=== PATIENT | male | born 1980 ===

== ENCOUNTER 2017-02-05 19:04 | Emergency (ER) | payer OTHER ==
[2017-02-05 19:24] VITALS: BP 119/96; PULSE 82; RESP 16; TEMP 98; O2SAT 100
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
== END 2017-02-05 20:14 | disposition home or self-care (01) ==
LOC: H.ER 19:04
DX: Z57.8 Occupational exposure to other risk factors (principal); Z79.4 Long term (current) use of insulin

== ENCOUNTER 2017-04-24 11:21 | Emergency (ER) | payer OTHER ==
--- NOTE | 2017-04-24 11:37 | ED PDOC ---
HPI: Back Time Seen by Provider: 04/24/17 11:30 Chief Complaint (Nursing): Back Pain Chief Complaint (Provider): back pain History Per: Patient History/Exam Limitations: no limitations Additional Complaint(s): 36yo male come to the ED complaining of intermittent bilateral lower back pain for 1 month, worse since episode began yesterday. No upper back pain. Made worse by sitting or laying down. Past Medical History Reviewed: Historical Data, Nursing Documentation, Vital Signs - Medical History PMH: Diabetes, Pancreatitis Denies: HIV, Chronic Kidney Disease Other PMH: leg length discrepancy - Surgical History Other surgeries: right foot toe amputation - Family History Family History: States: Unknown Family Hx - Home Medications Home Medications: Ambulatory Orders Medication Instructions Recorded Gemfibrozil [Lopid] 600 mg PO BID #0 tab 05/14/15 Insulin Detemir [Levemir] 36 units SC HS #0 vial 05/14/15 Insulin Lispro [humALOG] 14 units SC AC #0 ml 05/14/15 Potassium Chloride [K-Dur 20] 20 meq PO DAILY #5 tab 05/14/15 Ibuprofen [Motrin] 1 tab PO Q8 PRN #21 tab 12/11/16 - Allergies Allergies/Adverse Reactions: Allergies Allergy/AdvReac Type Severity Reaction Status Date / Time Penicillins Allergy RASH Verified 12/11/16 11:34 shellfish derived Allergy RASH Verified 12/11/16 11:34 Review of Systems ROS Statement: Except As Marked, All Systems Reviewed And Found Negative Musculoskeletal: Positive for: Back Pain Physical Exam - Reviewed Nursing Documentation Reviewed: Yes Vital Signs Reviewed: Yes - Physical Exam Appears: Positive for: Well, Non-toxic, No Acute Distress Head Exam: Positive for: ATRAUMATIC, NORMAL INSPECTION, NORMOCEPHALIC Skin: Positive for: Warm, Dry Eye Exam: Positive for: EOMI, PERRL Respiratory: Negative for: Respiratory Distress Back: Positive for: Other (left paraspinal tenderness around L4 area. no CVA tenderness.) Extremity: Positive for: Normal ROM Neurologic/Psych: Positive for: Alert, Oriented Medical Decision Making Medical Decision Makin XR Lumbar Spine, Flexeril, Toradol Additional Comments - Additional Comments Additional Comments: Scribe Attestation: Documented by Keagan Kinney acting as a scribe for Ayesha Collins MD. Provider Attestation: All medical record entries made by the Scribe were at my direction and personally dictated by me. I have reviewed the chart and agree that the record accurately reflects my personal performance of the history, physical exam, medical decision making, and the department course for this patient. I have also personally directed, reviewed, and agree with the discharge instructions and disposition.
[2017-04-24 11:40] VITALS: BMI 38.0
--- NOTE | 2017-04-24 13:41 | RAD ---
PROCEDURE: Radiographs of the Lumbar Spine. HISTORY: L paraspinal pain COMPARISON: No prior. FINDINGS: BONES: No acute fractures nor retropulsed fragments. Vertebral bodies exhibit relatively normal stature. There is mild dextroscoliosis and or side bending to the right side however vertebral bodies and facets are otherwise normally aligned. DISC SPACES: Minor multilevel degenerative spondylosis. . There is mild facet arthropathy L5-S1 through L2-L3 levels in somewhat decreasing order of severity. Small marginal anterior as well as posterior osteophyte formation also noted as few levels as well. OTHER FINDINGS: None. IMPRESSION: No acute fractures. Minor degenerative spondylosis as above.
[2017-04-24 14:04] VITALS: BP 128/76; PULSE 78; RESP 20; TEMP 97.6; O2SAT 98
== END 2017-04-24 14:04 | disposition home or self-care (01) ==
LOC: H.ER 11:21
DX: M54.9 Dorsalgia, unspecified (principal)

== ENCOUNTER 2017-10-23 11:42 | Emergency (ER) | payer OTHER ==
[2017-10-23 11:42] VITALS: BMI 37.2
[2017-10-23 11:59] VITALS: RESP 18; TEMP 98
[2017-10-23] MEDS ORDERED: Povidone Iodine Oint 10% Foilpak UD ONE (12:00)
--- NOTE | 2017-10-23 12:43 | ED PDOC ---
HPI: Skin/Bite Injury Time Seen by Provider: 10/23/17 12:00 Chief Complaint (Nursing): Abnormal Skin Integrity Chief Complaint (Provider): Left arm abrasion, scratched at work History Per: Patient History/Exam Limitations: no limitations Onset/Duration Of Symptoms: Mins Current Symptoms Are (Timing): Still Present Quality Of Symptoms: Painful Severity: Mild Pain Scale Rating Of: 2 Additional Complaint(s): Unknown tetanus. 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 Pt has not diagnosis of HIV or hepatitis. Past Medical History Reviewed: Historical Data, Nursing Documentation, Vital Signs Vital Signs: Last Vital Signs Temp 98 F 10/23/17 11:58 Pulse 113 H 10/23/17 11:58 Resp 18 10/23/17 11:58 BP 142/82 10/23/17 11:58 Pulse Ox 98 10/23/17 11:58 - Medical History PMH: Diabetes, Pancreatitis Denies: HIV, Chronic Kidney Disease - Surgical History Surgical History: No Surg Hx - Family History Family History: States: Unknown Family Hx, CAD - Home Medications Home Medications: Ambulatory Orders Medication Instructions Recorded Gemfibrozil [Lopid] 600 mg PO BID #0 tab 05/14/15 Insulin Detemir [Levemir] 36 units SC HS #0 vial 05/14/15 Insulin Lispro [humALOG] 14 units SC AC #0 ml 05/14/15 Potassium Chloride [K-Dur 20] 20 meq PO DAILY #5 tab 05/14/15 Ibuprofen [Motrin] 1 tab PO Q8 PRN #21 tab 12/11/16 Cyclobenzaprine [Cyclobenzaprine 10 mg PO TID PRN #15 tab 04/24/17 HCl] Naproxen [Naprosyn] 500 mg PO BID PRN #15 tablet 04/24/17 - Allergies Allergies/Adverse Reactions: Allergies Allergy/AdvReac Type Severity Reaction Status Date / Time Penicillins Allergy RASH Verified 12/11/16 11:34 shellfish derived Allergy RASH Verified 12/11/16 11:34 Review of Systems ROS Statement: Except As Marked, All Systems Reviewed And Found Negative Constitutional: Negative for: Chills Skin: Positive for: Other Physical Exam - Reviewed Nursing Documentation Reviewed: Yes Vital Signs Reviewed: Yes - Physical Exam Appears: Positive for: Well, Non-toxic, No Acute Distress Head Exam: Positive for: ATRAUMATIC, NORMAL INSPECTION, NORMOCEPHALIC Skin: Positive for: Warm. Negative for: Normal Color (14.5 cm linear abrasion, left forearm ) Eye Exam: Positive for: Normal appearance ENT: Positive for: Normal ENT Inspection Neck: Positive for: Normal, Painless ROM Respiratory: Negative for: Accessory Muscle Use, Respiratory Distress Back: Positive for: Normal Inspection Extremity: Positive for: Normal ROM. Negative for: Swelling Neurologic/Psych: Positive for: Alert, Oriented - ECG O2 Sat by Pulse Oximetry: 98 Pulse Ox Interpretation: Normal Disposition - Clinical Impression Clinical Impression: Abrasion - Patient ED Disposition Is Patient to be Admitted: No Counseled Patient/Family Regarding: Diagnosis, Need For Followup - Disposition Disposition: Routine/Home Disposition Time: 12:50 Condition: GOOD Additional Instructions: Keep clean and dry with antibiotic ointment twice a day. Instructions: Abrasion (ED)
[2017-10-23 13:04] VITALS: BP 128/78; PULSE 78; O2SAT 97
== END 2017-10-23 13:04 | disposition home or self-care (01) ==
LOC: H.ER 11:42
DX: S50.812A Abrasion of left forearm, initial encounter (principal); Y99.0 Civilian activity done for income or pay; E11.9 Type 2 diabetes mellitus without complications; K85.90 Acute pancreatitis without necrosis or infection, unspecified; Z79.4 Long term (current) use of insulin; Z88.0 Allergy status to penicillin

== ENCOUNTER 2018-04-09 13:07 | Emergency (ER) | payer OTHER ==
[2018-04-09 13:08] VITALS: BMI 36.5
[2018-04-09 14:03] VITALS: RESP 18
[2018-04-09] MEDS ORDERED: Tmp-Smz 800 mg-160 mg DS Tab PO STA (14:12)
[2018-04-09] MEDS ORDERED: Tmp-Smz 800 mg-160 mg DS Tab ONE (14:24)
--- NOTE | 2018-04-09 14:34 | ED PDOC ---
HPI: General Adult Time Seen by Provider: 04/09/18 13:56 Chief Complaint (Nursing): Abnormal Skin Integrity Chief Complaint (Provider): Abscess History Per: Patient History/Exam Limitations: no limitations Onset/Duration Of Symptoms: Days (x5) Current Symptoms Are (Timing): Still Present Additional Complaint(s): 37 year old male presents to the ED for evaluation of abscess to the left side of the ribs for the past 5 days. Patient reports localized pain, swelling, and redness and reports that for the last 2 days he has been applying warm compresses about twice a day. 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 PMD: none provided Past Medical History Reviewed: Historical Data, Nursing Documentation, Vital Signs Vital Signs: Last Vital Signs Temp 97.9 F 04/09/18 19:33 Pulse 71 04/09/18 19:33 Resp 18 04/09/18 14:02 BP 125/64 04/09/18 19:33 Pulse Ox 98 04/11/18 00:08 - Medical History PMH: Diabetes, Fractures ( CHILD ), Pancreatitis Denies: HIV, Chronic Kidney Disease - Surgical History Other surgeries: procedures to right femur as a child and amputation of right 5th toe - Family History Family History: States: Unknown Family Hx - Social History Current smoker - smoking cessation education provided: No Ex-Smoker (has not smoked in the last 12 months): Yes Alcohol: Social Drugs: Denies - Home Medications Home Medications: Ambulatory Orders Medication Instructions Recorded Acetaminophen 650 mg PO ONCE PRN 11/16/17 Guaifenesin [Mucinex] 600 mg PO ONCE PRN 11/16/17 Omeprazole 40 mg PO DAILY 11/16/17 Sulfamethoxazole/Trimethoprim 1 tab PO BID #14 tab 04/09/18 [Bactrim DS 800 mg-160 mg] metFORMIN [glucOPHAGE] 500 mg PO BID #14 tab 04/09/18 - Allergies Allergies/Adverse Reactions: Allergies Allergy/AdvReac Type Severity Reaction Status Date / Time Penicillins Allergy Severe ANGIOEDEMA Verified 04/09/18 14:01 shellfish derived Allergy Severe ANGIOEDEMA Verified 04/09/18 14:01 Review of Systems ROS Statement: Except As Marked, All Systems Reviewed And Found Negative Constitutional: Negative for: Fever, Chills Cardiovascular: Negative for: Chest Pain Respiratory: Negative for: Shortness of Breath Gastrointestinal: Negative for: Nausea, Vomiting, Abdominal Pain Musculoskeletal: Positive for: Other (Localized pain, swelling, and redness to left side of ribs) Physical Exam - Reviewed Nursing Documentation Reviewed: Yes Vital Signs Reviewed: Yes - Physical Exam Comments: GENERAL APPEARANCE: Patient is awake, alert, oriented x 3, in no distress. NECK: Supple, FROM ENT: Mucus membranes moist. Skin: warm and dry, (+) 2cm x 2 cm erythematous, indurated, tender abscess to the left lateral ribs with no surrounding cellulitis or active drainage. Pulmonary: lungs clear to auscultation bilaterally, no rhonchi, no wheezing, no rales. Speaking in full sentences, respirations even and nonlabored. Cardiac: regular rate and rhythm, no murmur, no gallop. Abdomen: soft, nontender, nondistended. (-) guarding Neuro: Mental status as above; speech clear, gait steady. (-) facial asymmetry ( -) slurred speech (-) aphasia - Laboratory Results Result Diagrams: 04/09/18 15:17 04/09/18 15:17 - ECG O2 Sat by Pulse Oximetry: 98 (RA) Pulse Ox Interpretation: Normal Medical Decision Making Medical Decision Making: Initial Impression: abscess Initial Plan: Sulfamethoxazole 1 tab PO Ibuprofen 600mg PO Accucheck 14:39 Results for accucheck was 390. Patient states that after hospitalization in 2014 for pancreatitis and cellulitis, patient was on metformin for diabetes but has not taken it in 2 years. He states that every time his sugar was checked, he has been in the 90s but he admits to not monitoring his sugar often. Diagnosis of hyperglycemia and patient is agreeable for treatment for hyperglycemia at this time. Additional workup of CMP, CBC, Insulin 8 units IV, Sodium chloride 1000mL IV, and urinalysis have been ordered. 16:55 Accucheck 330 CMP glucose: 465 Additional Insulin 4 Units IV ordered. Additional 1L NS ordered. Patient resting comfortably with no additional complaints at this time. 19:00 Accucheck: 254 On re-evaluation, patient reports improvement of symptoms, denies headache, dizziness, visual changes, chest/abdominal pain, SOB. On exam, patient remains AAOx3, in no acute distress. On exam, neck is supple, lungs CTA, cardiac RRR, abdomen is soft and non-tender, neuro exam shows no focal findings. Vitals stable. Diagnostic results d/w the patient in great detail. Dx of elevated blood sugar, abscess d/w the patient. Based on history, exam and diagnostic results plan will be for discharge and outpatient follow up. Advised to resume Metformin treatment and close follow up with PMD stressed. Dietary modifications and sugar monitoring encouraged. Advised to follow up with primary care physician in 1-2 days without fail. Advised to take medication as prescribed. Return to the emergency room at any time for any new or worsening symptoms. Patient states he fully agrees with and understands discharge instructions. States that he agrees with the plan and disposition. Verbalized and repeated discharge instructions and plan. I have given the patient opportunity to ask any additional questions. Scribe Attestation: Documented by Edmundo Cash acting as a scribe for Radha CEBALLOS. Provider Scribe Attestation: All medical record entries made by the Scribe were at my direction and personally dictated by me. I have reviewed the chart and agree that the record accurately reflects my personal performance of the history, physical exam, medical decision making, and the department course for this patient. I have also personally directed, reviewed, and agree with the discharge instructions and disposition. Disposition - Clinical Impression Clinical Impression: Abscess, Elevated blood sugar - Patient ED Disposition Is Patient to be Admitted: No Counseled Patient/Family Regarding: Studies Performed, Diagnosis, Need For Followup, Rx Given - Disposition Referrals: Abhi Beavers MD [Family Provider] - Disposition: Routine/Home Disposition Time: 19:40 Condition: FAIR Additional Instructions: FOLLOW UP WITH PMD IN 1-2 DAYS FOR WOUND CHECK (ABSCESS) AND FURTHER GLYCEMIC CONTROL. TAKE ANTIBIOTICS UNTIL COMPLETE. APPLY WARM COMPRESSES 2X DAILY TO ABSCESS. USE TYLENOL OR MOTRIN NEEDED FOR PAIN. DECREASE SUGAR AND CARBOHYDRATE INTAKE. Prescriptions: metFORMIN [glucOPHAGE] 500 mg PO BID #14 tab Sulfamethoxazole/Trimethoprim [Bactrim DS 800 mg-160 mg] 1 tab PO BID #14 tab Instructions: Hyperglycemia, Adult, Skin Abscess, Blood Glucose Monitoring, The ABCs of Diabetes, Diabetes and Diet Forms: [employer] (Albanian) Print Language: AZERI - POA Present On Arrival: Poor Glycemic Control Results - Lab Results Lab Results: 04/09/18 04/09/18 04/09/18 19:10 16:56 16:00 WBC RBC Hgb Hct MCV MCH MCHC RDW Plt Count MPV Neut % (Auto) Lymph % (Auto) [place] % (Auto) Eos % (Auto) Baso % (Auto) Neut # (Auto) Lymph # (Auto) [place] # (Auto) Eos # (Auto) Baso # (Auto) Sodium Potassium Chloride Carbon Dioxide Anion Gap BUN Creatinine Est GFR ( Amer) Est GFR (Non-Af Amer) POC Glucose (mg/dL) 254 H 330 H 340 H Random Glucose Calcium Total Bilirubin AST ALT Alkaline Phosphatase Total Protein Albumin Globulin Albumin/Globulin Ratio Urine Color Urine Clarity Urine pH Ur Specific [place] Urine Protein Urine Glucose (UA) Urine Ketones Urine Blood Urine Nitrate Urine Bilirubin Urine Urobilinogen Ur Leukocyte Esterase Urine RBC (Auto) Urine Microscopic WBC Ur Squamous Epith Cells 04/09/18 04/09/18 04/09/18 15:17 15:17 15:17 WBC 8.3 RBC 5.54 Hgb 15.8 Hct 45.8 MCV 82.7 MCH 28.5 MCHC 34.5 RDW 13.7 Plt Count 214 MPV 8.6 Neut % (Auto) 53.4 Lymph % (Auto) 37.0 [place] % (Auto) 6.4 Eos % (Auto) 2.1 Baso % (Auto) 1.1 Neut # (Auto) 4.4 Lymph # (Auto) 3.1 [place] # (Auto) 0.5 Eos # (Auto) 0.2 Baso # (Auto) 0.1 Sodium 133 Potassium 4.1 Chloride 100 Carbon Dioxide 18 L Anion Gap 19 BUN 14 Creatinine 0.5 L Est GFR ( Amer) > 60 Est GFR (Non-Af Amer) > 60 POC Glucose (mg/dL) Random Glucose 465 H* D Calcium 8.7 Total Bilirubin 0.6 AST 34 ALT 66 Alkaline Phosphatase 126 D Total Protein 8.1 Albumin 4.3 Globulin 3.8 Albumin/Globulin Ratio 1.1 Urine Color Straw Urine Clarity Clear Urine pH 6.0 Ur Specific [place] 1.036 H Urine Protein 30 Urine Glucose (UA) >=500 Urine Ketones Negative Urine Blood Negative Urine Nitrate Negative Urine Bilirubin Negative Urine Urobilinogen 0.2-1.0 Ur Leukocyte Esterase Small Urine RBC (Auto) 4 H Urine Microscopic WBC 8 H Ur Squamous Epith Cells < 1 04/09/18 14:28 WBC RBC Hgb Hct MCV MCH MCHC RDW Plt Count MPV Neut % (Auto) Lymph % (Auto) [place] % (Auto) Eos % (Auto) Baso % (Auto) Neut # (Auto) Lymph # (Auto) [place] # (Auto) Eos # (Auto) Baso # (Auto) Sodium Potassium Chloride Carbon Dioxide Anion Gap BUN Creatinine Est GFR ( Amer) Est GFR (Non-Af Amer) POC Glucose (mg/dL) 390 H Random Glucose Calcium Total Bilirubin AST ALT Alkaline Phosphatase Total Protein Albumin Globulin Albumin/Globulin Ratio Urine Color Urine Clarity Urine pH Ur Specific [place] Urine Protein Urine Glucose (UA) Urine Ketones Urine Blood Urine Nitrate Urine Bilirubin Urine Urobilinogen Ur Leukocyte Esterase Urine RBC (Auto) Urine Microscopic WBC Ur Squamous Epith Cells
[2018-04-09] MEDS ORDERED: Insulin Regular 100 units/ml IV STA ×2 (14:39→16:59)
[2018-04-09] MEDS ORDERED: Insulin Regular 100 units/ml ONE ×3 (15:19→17:17)
[2018-04-09 15:22] LABS: BASO # 0.1 K/uL (0.0-0.2); BASO % 1.1 % (0.0-2.0); EOS # 0.2 K/uL (0.0-0.7); EOS % 2.1 % (0.0-4.0); HEMOGLOBIN 15.8 g/dL (12.0-18.0); LYMPH # 3.1 K/uL (1.0-4.3); MEAN CELL VOLUME 82.7 fl (80.0-94.0); MEAN CORPUSCULAR HEMOGLOBIN 28.5 pg (27.0-31.0); MEAN CORPUSCULAR HGB CONC 34.5 g/dL (33.0-37.0); MEAN PLATELET VOLUME 8.6 fl (7.2-11.7); MONO # 0.5 K/uL (0.0-0.8); MONO % 6.4 % (0.0-10.0); NEUT # 4.4 K/uL (1.8-7.0); NEUT % 53.4 % (50.0-75.0); NRBC % 0.3 % (0.0-0.0); RBC 5.54 Mil/uL (4.40-5.90); RED CELL DISTRIBUTION WIDTH 13.7 % (11.5-14.5); WHITE BLOOD COUNT 8.3 K/uL (4.8-10.8)
[2018-04-09] MEDS: Sodium Chloride 0.9% 1,000 ML IV SCH ×2 (15:30→16:01)
[2018-04-09 15:33] LABS: SQUAMOUS EPITHIAL < 1 /hpf (0-5); URINE BILIRUBIN NEGATIVE (NEGATIVE); URINE BLOOD NEGATIVE (NEGATIVE); URINE CLARITY CLEAR (Clear); URINE COLOR STRAW (YELLOW); URINE GLUCOSE (UA) >=500 mg/dL (Normal); URINE LEUKOCYTE ESTERASE SMALL Leu/uL (Negative); URINE PROTEIN 30 mg/dL (NEGATIVE); URINE UROBILINOGEN 0.2-1.0 mg/dL (0.2-1.0)
[2018-04-09 15:46] LABS: ALB/GLOB RATIO 1.1 (1.0-2.1); ALBUMIN 4.3 g/dL (3.5-5.0); ALT/SGPT 66 U/L (21-72); AST/SGOT 34 U/L (17-59); BLOOD UREA NITROGEN 14 mg/dl (9-20); CALCIUM 8.7 mg/dL (8.4-10.2); GFR AFRICAN-AMERICAN > 60; GFR NON-AFRICAN AMERICAN > 60
[2018-04-09] MEDS ORDERED: Sodium Chloride 0.9% 1,000 ML IV SCH (17:30)
[2018-04-09 19:34] VITALS: BP 125/64; PULSE 71; TEMP 97.9
[2018-04-09 19:42] VITALS: O2SAT 98
== END 2018-04-09 19:50 | disposition home or self-care (01) ==
LOC: H.ER 13:07
DX: L02.213 Cutaneous abscess of chest wall (principal); E11.65 Type 2 diabetes mellitus with hyperglycemia; Z79.4 Long term (current) use of insulin; Z87.891 Personal history of nicotine dependence; Z88.0 Allergy status to penicillin; Z89.421 Acquired absence of other right toe(s)
CPT/HCPCS: 80053; 81003; 82948; 85025; 99282; J7030

== ENCOUNTER 2018-12-16 09:09 | Emergency (ER) | payer OTHER ==
[2018-12-16 09:10] VITALS: BMI 36.5
[2018-12-16 09:13] VITALS: BP 143/82; PULSE 92; RESP 18; TEMP 97.4; O2SAT 97
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
--- NOTE | 2018-12-16 16:20 | RAD ---
PROCEDURE: Left Hand Radiographs. HISTORY: trauma COMPARISON: Left hand radiographs 12/11/2016. FINDINGS: BONES: No acute fracture or destructive bony lesion identified. JOINTS: Normal. No osteoarthritic changes. SOFT TISSUES: Normal. OTHER FINDINGS: None. IMPRESSION: Stable unremarkable left hand radiographs.
== END 2018-12-16 10:23 | disposition home or self-care (01) ==
LOC: H.ER 09:09
DX: S63.602A Unspecified sprain of left thumb, initial encounter (principal); X50.9XXA Other and unspecified overexertion or strenuous movements or postures, initial encounter; Y99.0 Civilian activity done for income or pay; E11.9 Type 2 diabetes mellitus without complications; Z79.84 Long term (current) use of oral hypoglycemic drugs; Z88.0 Allergy status to penicillin